=== PATIENT | female | born 1935 | race Asian ===

== ENCOUNTER 2016-06-21 09:01 | Emergency (ER) | payer OTHER ==
--- NOTE | 2016-06-21 09:32 | PDOC ---
History of Present Illness - General Chief Complaint: Bleeding from Anus Stated Complaint: RECTAL BLEEDING Time Seen by Provider: 06/21/16 09:30 - History of Present Illness Initial Comments: 06/21/16 11:22 Chief complaint: Rectal bleeding History of present illness: Rectal bleeding with bowel movements for approximately 2 months, limited to several drops of bright red blood per episode. Attributed to hemorrhoids. Feeling mild generalized weakness for the last several days, which prompted this evaluation. Review of systems: Denies lightheadedness, dizziness, orthostatic symptoms, chest pain, shortness of breath, abdominal pain, nausea, vomiting, diarrhea, melena or black stools. Admits to straining with defecation and experiencing mild rectal pain with defecation as well. Remainder systems reviewed and found to be negative Past medical history: Small bowel obstruction approximately one year ago, treated surgically, thought to be due to adhesions from prior hysterectomy, stable since then. High blood pressure. Otherwise negative Social history: Lives with family, recently traveled to [place] for a visit without any problems, no tobacco alcohol or nonprescription drugs, ambulatory, active, cares for self Family history: Reviewed and noncontributory including early coronary artery disease, metabolic disease including diabetes, cancer including colon cancer. Physical exam: Alert oriented 3 well-developed well-nourished in no acute distress cheerful and cooperative Afebrile, vital signs normal, including orthostatic pulse and blood pressure. PERRLA, fundi benign, conjunctivae clear without pallor, ENT clear Neck supple without bruit mass or nodes Chest clear with full breath sounds throughout bilaterally CV S1 and S2 normal without murmur or gallop pulses full and symmetric no JVD or edema no bruits Abdomen nondistended, bowel sounds normal, soft without masses tenderness organomegaly Rectal exam reveals several small external hemorrhoids less than 1 cm, with mild inflammation at approximately 3:00. No internal masses or tenderness. Minimal stool is present at fingertip depth, and specimen appears pink. Stool for guaiac sent Neurological intact. Gait stable and unimpaired Extremities no CCE Skin clear, no rash, adequate turgor and what mucous membranes Impression: Lower GI bleed, probably mild, clinically stable. No orthostatic changes suggestive of significant blood loss or hypovolemia. Possibly due to hemorrhoids, but other possibilities include diverticular bleed, early colon cancer, AVM, gastritis or peptic ulcer, or other GI lesion Plan: CBC, chemistries, INR, and further evaluation depending on results. Past History - Past Medical History Allergies/Adverse Reactions: Allergies Allergy/AdvReac Type Severity Reaction Status Date / Time No Known Allergies Allergy Verified 06/21/16 09:04 Home Medications: Ambulatory Orders Aspirin [ASA -] 81 mg PO DAILY 04/12/15 Metoprolol Succinate [Toprol XL -] 12.5 mg PO HS 04/12/15 Amlodipine Bes/Olmesartan Med [Shantel 10-40 mg Tablet] 0.5 tab PO DAILY 06/21/16 Ferrous Sulfate [Feosol] 325 mg PO DAILY 06/21/16 Hydrocortisone Acetate [Anusol Hc Suppository -] 25 mg RC DAILY #10 supp.rect Anemia: Yes Asthma: No Cancer: No Cardiac Disorders: No CVA: No COPD: No CHF: No Dementia: No Diabetes: No GI Disorders: Yes (HX OF CDIFF, SBO) Disorders: No HTN: Yes Hypercholesterolemia: No Liver Disease: No Seizures: No Thyroid Disease: No - Surgical History Abdominal Surgery: Yes (LAP) Appendectomy: No Cardiac Surgery: No Cholecystectomy: No Lung Surgery: No Neurologic Surgery: No Orthopedic Surgery: No - Psycho/Social/Smoking Cessation Hx Anxiety: No Suicidal Ideation: No Smoking History: Never smoked Have you smoked in the past 12 months: No Information on smoking cessation initiated: No Hx Alcohol Use: No Drug/Substance Use Hx: No Substance Use Type: None Hx Substance Use Treatment: No *Physical Exam - Vital Signs Last Vital Signs Temp Pulse Resp BP Pulse Ox 99.4 F 76 16 144/67 100 06/21/16 09:03 06/21/16 09:03 06/21/16 09:03 06/21/16 09:03 06/21/16 09:03 ED Treatment Course - LABORATORY CBC & Chemistry Diagram: 06/21/16 09:33 06/21/16 09:33 Medical Decision Making - Medical Decision Making 06/21/16 11:29 H&H are 12 and 37, platelets adequate, INR not elevated. Sodium 129. With a normal H&H, and no orthostatic changes, probably no significant blood loss. Because of generalized weakness, which is mild, is unclear. Possibly related to mildly depressed sodium. Referred to Dr. Askew for colonoscopy as soon as possible to exclude colon lesion. Trial of Anusol HC in case this is hemorrhoidal bleeding. The patient and her daughter were instructed to return to the ER immediately if bleeding increased or other symptoms related to blood loss developed. Otherwise they will contact Dr. Askew within 24 hours to schedule colonoscopy. Patient fully ambulatory in no pain or other distress upon discharge with her daughter to follow-up as directed. *DC/Admit/Observation/Transfer Diagnosis at time of Disposition: Rectal bleeding - Discharge Dispostion Disposition: HOME Condition at time of disposition: Stable Admit: No - Prescriptions Prescriptions: Hydrocortisone Acetate [Anusol Hc Suppository -] 25 mg RC DAILY #10 supp.rect - Referrals Referrals: Colton Askew MD [Staff Physician] - 24 hours - Patient Instructions Printed Discharge Instructions: DI for Rectal Bleeding Additional Instructions: Return to ER if bleeding worsens or if there are other associated symptoms such as lightheadedness/dizziness, chest pain, shortness of breath, or abdominal pain. Your blood counts appear to be good, your blood pressure and pulse are stable, and this suggests that bleeding is not severe or dangerous at the present time. However, as noted above, if the bleeding becomes heavier you may need to be evaluated again in the emergency room. Otherwise see psychologist clinical for colonoscopy as soon as possible to further define the source of the bleeding.
[2016-06-21 09:35] VITALS: TEMP 99.4; BMI 24.2
[2016-06-21 10:04] LABS: EOSINOPHIL 0.5 % (0-4.5); MCH 27.7 pg (25.7-33.7); MCHC 33.5 g/dl (32.0-36.0); MEAN CELL VOLUME 82.5 fl (80-96); MEAN PLT VOLUME 8.6 fl (7.5-11.1); NEUTROPHILS 69.9 % (42.8-82.8); PLATELET COUNT 307 K/MM3 (134-434); RDW 13.6 % (11.6-15.6); WHITE BLOOD COUNT 7.6 K/mm3 (4.0-10.0)
[2016-06-21 10:12] LABS: INR 1.15 (0.82-1.09); PROTHROMBIN TIME (PATIENT) 12.8 SEC (10.2-13.0)
[2016-06-21 10:27] LABS: ALBUMIN 4.2 g/dl (3.5-5.0); ALK PHOS 67 U/L (32-92); ANION GAP 6 (8-16); BILIRUBIN,TOTAL 0.6 mg/dl (0.2-1.0); CALCIUM 10.1 mg/dl (8.4-10.2); CO2 25 mmol/L (22-28); CREATININE 0.9 mg/dl (0.6-1.3); GLUCOSE,RANDOM 111 mg/dl (74-106); SGOT/AST 30 U/L (10-42); SGPT/ALT 18 U/L (10-40); TOT PROT 7.4 g/dl (6.4-8.3)
[2016-06-21 11:11] VITALS: BP 139/69; PULSE 70
== END 2016-06-21 11:14 | disposition home or self-care (01) ==
LOC: FER 09:01
DX: K62.5 Hemorrhage of anus and rectum (principal); I10 Essential (primary) hypertension; D64.9 Anemia, unspecified
CPT/HCPCS: 36415; 80053; 82272; 85025; 85610; 99283-25